=== PATIENT | female | born 1980 | race Caucasian/White ===

== ENCOUNTER 2017-02-04 19:59 | Emergency (ER) | payer OTHER ==
[~2017-02-04] VITALS: Ht 154.9 cm; Wt 95.1 kg
[~2017-02-04 19:59] MED LIST: PROVENTIL HFA6.7 GM IH; ULTRAM50 MG PO; ZITHROMAX Z-PA250 MG PO
[2017-02-04 21:36] LABS: HEMATOCRIT 37.1 % (36.0-46.0); MCV 88.3 FL (83-99); MEAN PLAT.VOLUME 9.8 uM^3 (9.5-12.4); PLATELET COUNT 176 K/uL (156-360); RBC DIS.WIDTH-CV 11.9 % (11.8-14.6); RBC DIS.WIDTH-SD 37.6 % (39-53); WHITE BLOOD COUNT 8.1 K/uL (4.1-10.2)
[2017-02-04 21:44] LABS: CHLORIDE 109 mEq/L (99-109); POTASSIUM 3.6 mEq/L (3.7-5.4); SODIUM 138 mEq/L (136-147)
[2017-02-04 21:46] LABS: GLUCOSE 82 mg/dL (70-99)
[2017-02-04 21:47] LABS: ANION GAP 4 MEQ/L (2-14)
[2017-02-04 21:48] LABS: ADD MIUA? NO; BILIRUBIN NEGATIVE; BLOOD NEGATIVE; COLOR COLORLESS ((YELLOW)); GLUCOSE (STRIP) NEGATIVE; KETONES NEGATIVE; LEUKOCYTES NEGATIVE; NITRITE NEGATIVE; PROTEIN (STRIP) NEGATIVE; SPECIFIC GRAVITY 1.003 (1.000-1.030); UCUL ADDED? NO; UROBILINOGEN 0.2 MG/DL (0.2-1.0)
[2017-02-04 21:48] LABS: TOTAL BILIRUBIN 0.4 mg/dL (0.0-1.0)
[2017-02-04 21:49] LABS: ALKALINE PHOSPHATASE 72 IU/L (3-129)
[2017-02-04 21:50] LABS: GFR ESTIMATE (CALCULATED) > 59 mL/min/
[2017-02-04 21:51] LABS: UREA NITROGEN (BUN) 13 mg/dL (9-23)
[2017-02-04 21:53] LABS: LIPASE 29 U/L (1.0-51.0)
[2017-02-04 22:00] LABS: QUANTITATIVE HCG < 4.0 MIU/ML
[2017-02-05] MEDS ORDERED: PERCOCET 5/31 TABLET PO (00:27)
[2017-02-05] MEDS ORDERED: ZOFRAN ODT4 MG PO (00:27)
[2017-02-05 00:41] VITALS: BP 123/78
== END 2017-02-05 00:42 | disposition home or self-care (01) ==
LOC: EME 19:59
PROVIDERS: Physician Assistant
DX: R10.31 Right lower quadrant pain (principal); Z98.84 Bariatric surgery status; E11.9 Type 2 diabetes mellitus without complications
CPT/HCPCS: 76770; 76856; 80053; 81003; 83690; 84702; 85027; 99281; 99284; J3010

== ENCOUNTER 2017-02-19 22:57 | Emergency (ER) | payer OTHER ==
[~2017-02-19] VITALS: Ht 152.4 cm; Wt 90.9 kg
[~2017-02-19 22:57] MED LIST changes: +PERCOCET 5/31 TABLET PO; +ZOFRAN ODT4 MG PO
[2017-02-19 23:38] LABS: HEMATOCRIT 39.2 % (36.0-46.0); MCH 30.1 PG (29.0-34.0); MCHC 34.4 G/DL (30.0-36.0); MCV 87.3 FL (83-99); MEAN PLAT.VOLUME 10.3 uM^3 (9.5-12.4); PLATELET COUNT 218 K/uL (156-360); RBC DIS.WIDTH-CV 11.7 % (11.8-14.6); RBC DIS.WIDTH-SD 37.6 % (39-53); RED BLOOD COUNT 4.49 M/uL (3.80-5.20); WHITE BLOOD COUNT 11.6 K/uL (4.1-10.2)
[2017-02-19 23:50] LABS: CHLORIDE 107 mEq/L (99-109); POTASSIUM 3.7 mEq/L (3.7-5.4); SODIUM 138 mEq/L (136-147)
[2017-02-19 23:52] LABS: ADD MIUA? YES; BILIRUBIN NEGATIVE; BLOOD NEGATIVE; COLOR STRAW ((YELLOW)); GLUCOSE (STRIP) NEGATIVE; KETONES NEGATIVE; LEUKOCYTES SMALL; NITRITE NEGATIVE; PROTEIN (STRIP) NEGATIVE; SPECIFIC GRAVITY 1.009 (1.000-1.030); UROBILINOGEN 0.2 MG/DL (0.2-1.0)
[2017-02-19 23:54] LABS: TOTAL BILIRUBIN 0.2 mg/dL (0.0-1.0)
[2017-02-19 23:57] LABS: BACTERIA 2+ /HPF; EPITHELIAL CELLS RARE /HPF; MUCUS NONE SEEN /LPF; RED BLOOD CELLS 0-5 /HPF (0-5); UCUL ADDED? YES; WHITE BLOOD CELLS 0-5 /HPF (0-5)
[2017-02-20 00:07] LABS: QUANTITATIVE HCG 35.1 MIU/ML
[2017-02-20 00:12] LABS: GLUCOSE 82 mg/dL (70-99)
[2017-02-20 00:13] LABS: ANION GAP 12 MEQ/L (2-14)
[2017-02-20 00:15] LABS: ALKALINE PHOSPHATASE 76 IU/L (3-129)
[2017-02-20 00:16] LABS: GFR ESTIMATE (CALCULATED) > 59 mL/min/
[2017-02-20 00:17] LABS: UREA NITROGEN (BUN) 19 mg/dL (9-23)
[2017-02-20 00:19] LABS: LIPASE 62 U/L (1.0-51.0)
[2017-02-20] MEDS ORDERED: NITROFURANTOIN100 M3 PO (00:59)
[2017-02-20] MEDS ORDERED: MIRALAX17 GM PO (00:59)
[2017-02-20 01:11] VITALS: BP 115/67
== END 2017-02-20 01:51 | disposition home or self-care (01) ==
LOC: EME 22:57
PROVIDERS: Emergency Medicine
DX: O23.41 Unspecified infection of urinary tract in pregnancy, first trimester (principal); O99.611 Diseases of the digestive system complicating pregnancy, first trimester; K59.00 Constipation, unspecified; O09.521 Supervision of elderly multigravida, first trimester; O99.841 Bariatric surgery status complicating pregnancy, first trimester; Z3A.01 Less than 8 weeks gestation of pregnancy
CPT/HCPCS: 80053; 81003; 83690; 84702; 85027; 87086; 99281; 99284

== ENCOUNTER 2017-02-25 22:01 | Emergency (ER) | payer OTHER ==
[~2017-02-25] VITALS: Ht 152.4 cm; Wt 92.9 kg
[~2017-02-25 22:01] MED LIST changes: +MIRALAX17 GM PO; +NITROFURANTOIN100 M3 PO
[2017-02-25 22:07] VITALS: BP 98/71
[2017-02-25 22:37] LABS: ADD MIUA? YES; BILIRUBIN NEGATIVE; BLOOD NEGATIVE; COLOR YELLOW ((YELLOW)); GLUCOSE (STRIP) NEGATIVE; KETONES NEGATIVE; LEUKOCYTES TRACE; NITRITE NEGATIVE; PROTEIN (STRIP) NEGATIVE; SPECIFIC GRAVITY 1.026 (1.000-1.030); UROBILINOGEN 0.2 MG/DL (0.2-1.0)
[2017-02-25 22:41] LABS: BACTERIA 1+ /HPF; EPITHELIAL CELLS RARE /HPF; MUCUS TRACE /LPF; RED BLOOD CELLS 0-5 /HPF (0-5); UCUL ADDED? NO; WHITE BLOOD CELLS 0-5 /HPF (0-5)
[2017-02-25 22:55] LABS: HEMATOCRIT 39.3 % (36.0-46.0); MCH 29.9 PG (29.0-34.0); MCHC 33.8 G/DL (30.0-36.0); MCV 88.3 FL (83-99); MEAN PLAT.VOLUME 10.2 uM^3 (9.5-12.4); PLATELET COUNT 196 K/uL (156-360); RBC DIS.WIDTH-CV 11.8 % (11.8-14.6); RBC DIS.WIDTH-SD 37.9 % (39-53); RED BLOOD COUNT 4.45 M/uL (3.80-5.20); WHITE BLOOD COUNT 9.2 K/uL (4.1-10.2)
== END 2017-02-26 02:30 | disposition home or self-care (01) ==
LOC: EME 22:01
DX: O03.9 Complete or unspecified spontaneous abortion without complication (principal); K59.00 Constipation, unspecified; R30.0 Dysuria; M54.5 Low back pain; Z87.440 Personal history of urinary (tract) infections; O09.511 Supervision of elderly primigravida, first trimester; Z98.84 Bariatric surgery status; Z3A.01 Less than 8 weeks gestation of pregnancy
CPT/HCPCS: 76856; 81003; 84702; 85027; 99281; 99284

== ENCOUNTER 2017-04-19 19:56 | Emergency (ER) | payer OTHER ==
[~2017-04-19] VITALS: Ht 152.4 cm; Wt 94.0 kg
[2017-04-19 21:00] LABS: HEMATOCRIT 38.6 % (36.0-46.0); MCH 30.6 PG (29.0-34.0); MCHC 34.2 G/DL (30.0-36.0); MCV 89.4 FL (83-99); MEAN PLAT.VOLUME 10.1 uM^3 (9.5-12.4); PLATELET COUNT 188 K/uL (156-360); RBC DIS.WIDTH-CV 11.9 % (11.8-14.6); RBC DIS.WIDTH-SD 38.4 % (39-53); RED BLOOD COUNT 4.32 M/uL (3.80-5.20)
[2017-04-19 21:11] LABS: CHLORIDE 106 mEq/L (99-109); POTASSIUM 3.6 mEq/L (3.7-5.4); SODIUM 140 mEq/L (136-147)
[2017-04-19 21:12] LABS: GLUCOSE 108 mg/dL (70-99)
[2017-04-19 21:13] LABS: ANION GAP 7 MEQ/L (2-14)
[2017-04-19 21:16] LABS: GFR ESTIMATE (CALCULATED) > 59 mL/min/
[2017-04-19 21:17] LABS: UREA NITROGEN (BUN) 17 mg/dL (9-23)
[2017-04-19 21:24] LABS: TROP-I INTERPRETATION NEGATIVE; TROPONIN-I < 0.01 ng/mL (0.0-0.30)
[2017-04-19 22:24] LABS: ADD MIUA? NO; BILIRUBIN NEGATIVE; BLOOD NEGATIVE; COLOR YELLOW ((YELLOW)); GLUCOSE (STRIP) NEGATIVE; KETONES NEGATIVE; LEUKOCYTES NEGATIVE; NITRITE NEGATIVE; PROTEIN (STRIP) NEGATIVE; UROBILINOGEN 0.2 MG/DL (0.2-1.0)
[2017-04-19 23:02] VITALS: BP 105/70
== END 2017-04-19 23:03 | disposition home or self-care (01) ==
LOC: EME 19:56
PROVIDERS: Nurse Practitioner Family
DX: R53.83 Other fatigue (principal); R53.1 Weakness; R51 Headache; E11.9 Type 2 diabetes mellitus without complications; Z88.8 Allergy status to other drugs, medicaments and biological substances
CPT/HCPCS: 70450; 80048; 81003; 84443; 84484; 85027; 93005; 99281; 99285; J7030

== ENCOUNTER 2017-10-27 21:49 | Outpatient (CLI) | payer OTHER ==
[2017-10-27 23:18] LABS: SOURCE SWAB
[2017-10-27 23:34] VITALS: BP 109/59
[2017-10-27] MEDS ORDERED: PRENATAL TABLE1 EAC3 PO (23:59)
[2017-10-27] MEDS ORDERED: ASPIRIN81 M2 PO (23:59)
[2017-10-28 00:26] LABS: APPEARANCE CLOUDY ((CLEAR)); BILIRUBIN NEGATIVE; BLOOD NEGATIVE; COLOR YELLOW ((YELLOW)); GLUCOSE (STRIP) NEGATIVE; KETONES NEGATIVE; LEUKOCYTES SMALL; NITRITE NEGATIVE; PROTEIN (STRIP) 30; SPECIFIC GRAVITY 1.024 (1.000-1.030)
[2017-10-28 01:02] LABS: AMPHETAMINE NEGATIVE (500 ng/mL); BARBITURATES NEGATIVE (200 ng/mL); BENZODIAZEPINES NEGATIVE (150 ng/mL); BUPRENORPHINE NEGATIVE (10 ng/mL); COCAINE NEGATIVE (150 ng/mL); METHADONE NEGATIVE (200 ng/mL); METHAMPHETAMINE NEGATIVE (500 ng/mL); OPIATES (MORPHINE) NEGATIVE (100 ng/mL); OXYCODONE NEGATIVE (100 ng/mL); PHENCYCLIDINE NEGATIVE (25 ng/mL); PROPOXYPHENE NEGATIVE (300 ng/mL); THC CANNABINOIDS NEGATIVE (50 ng/mL); TRICYCLIC ANTIDEPRESSANTS NEGATIVE (300 ng/mL)
[2017-10-28 01:07] LABS: CANDIDA DNA PROBE NEGATIVE; GARDNERELLA DNA PROBE NEGATIVE; TRICHOMONAS DNA PROBE NEGATIVE
[2017-10-28 01:33] LABS: BACTERIA 2+ /HPF; EPITHELIAL CELLS 2+ /HPF
[2017-10-28 01:34] LABS: MUCUS 3+ /LPF; RED BLOOD CELLS 0-5 /HPF (0-5); UCUL ADDED? YES; WHITE BLOOD CELLS 15-20 /HPF (0-5)
== END 2017-10-28 01:08 | disposition home or self-care (01) ==
LOC: LDRP-OP 21:49 → 2WEST 21:50
PROVIDERS: Advanced Practice Midwife; Obstetrics & Gynecology
DX: O26.893 Other specified pregnancy related conditions, third trimester (principal); R10.11 Right upper quadrant pain; R10.31 Right lower quadrant pain; O99.283 Endocrine, nutritional and metabolic diseases complicating pregnancy, third trimester; E11.9 Type 2 diabetes mellitus without complications; E28.2 Polycystic ovarian syndrome; O09.292 Supervision of pregnancy with other poor reproductive or obstetric history, second trimester; Z3A.28 28 weeks gestation of pregnancy
CPT/HCPCS: 59025; 81003; 87086; 87480; 87491; 87510; 87591; 87660; G0378